=== PATIENT | male | born 1950 | race Caucasian/White ===

== ENCOUNTER 2016-07-01 13:08 | Emergency (ER) | payer OTHER ==
[~2016-07-01] VITALS: Ht 175.3 cm; Wt 86.2 kg
[2016-07-01 13:19] VITALS: BP 146/76
--- NOTE | 2016-07-01 14:06 | ED GI/GU/ABDOMINAL COMPLAINT ---
History of Present Illness General Chief Complaint: Male Genitourinary Problems Stated Complaint: ?UTI Source: patient Exam Limitations: no limitations Vital Signs & Intake/Output Vital Signs & Intake/Output Vital Signs Date Time Temp Pulse Resp B/P Pulse O2 O2 Flow FiO2 Ox Delivery Rate 07/01 1438 103.1 07/01 1319 103.1 97 24 146/76 97 Room Air ED Intake and Output 07/02 0000 07/01 1200 Intake Total Output Total Balance Patient 190 lb Weight Allergies Coded Allergies: No Known Allergies (07/01/16) Reconcile Medications Ciprofloxacin HCl (Cipro) 500 MG TABLET 1 TAB PO BID PYELONEPHRITIS Tamsulosin HCl (Flomax) 0.4 MG CAP.ER.24H 1 CAP PO DAILY PROSTATITIS Triage Note: TRIAGE: PT TO ER C/C PAIN WITH URINATION SINCE YESTERDAY LUNCH TIME. FEVER WELL. TOOK ASPIRIN AND ?HOMEPATHIC ACHING CHILLS FEVER MEDICATION. 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 REPORTS FREQUENT URINATION WITH DECREASED URINARY OUTPUT. HX OF UTI, FEELS SAME. Triage Nurses Notes Reviewed? yes HPI: This patient is a 65-year-old male who presented to the emergency department today for evaluation of, "I think I have a bladder infection." The patient reported that his symptoms began yesterday with difficulty starting a stream. He denied any blood or burning with urination. No urgency or frequency. The patient reported that he has had a bladder infection in the past and this feels similar. He reported fever to 101.5F. He reported associated chills. He denied any back pain, nausea, vomiting, abdominal pain, chest pain, or difficulty breathing. Past History Travel History Traveled to [place] past 21 day No Medical History Any Pertinent Medical History? see below for history Neurological: NONE EENT: NONE Cardiovascular: hypertension Respiratory: NONE Gastrointestinal: NONE Hepatic: NONE Renal: UTI Musculoskeletal: disk herniation, ROTATOR CUFF TORE TENDON WRIST Psychiatric: NONE Endocrine: NONE Blood Disorders: NONE Cancer(s): NONE OPERATING ROOM SCHEDULER/Reproductive: NONE Surgical History Surgical History: non-contributory Psychosocial History What is your primary language Lao Tobacco Use: Quit >30 days ago ETOH Use: heavy use Illicit Drug Use: denies illicit drug use Family History Hx Contributory? No Review of Systems Review of Systems Constitutional: Reports: see HPI. EENTM: Reports: no symptoms. Respiratory: Reports: no symptoms. Cardiovascular: Reports: no symptoms. GI: Reports: no symptoms. Genitourinary: Reports: see HPI. Musculoskeletal: Reports: no symptoms. Skin: Reports: no symptoms. Neurological/Psychological: Reports: no symptoms. All Other Systems: Reviewed and Negative Physical Exam Physical Exam Gastrointestinal: normal bowel sounds, soft, non-tender, no organomegaly Comments: Well-developed well-nourished person in no acute distress HEENT: Normal EENT exam, head normocephalic, moist mucous membranes Neck: Supple Back: Normal gait. No CVA tenderness Cardiovascular: Regular rate and rhythm with no murmurs Respiratory: Lungs clear to auscultation bilaterally with no wheezes, rales, rhonchi Extremity: Normal and equal pulses Neuro: Alert oriented x3, cranial nerves II through XII grossly intact. Skin: No appreciable rash on exposed skin, skin is warm and dry. Psych: Mood and affect is normal Core Measures ACS in differential dx? No Severe Sepsis Present: No Septic Shock Present: No Progress Differential Diagnosis: bowel obstruction, epididymitis, hernia, orchitis, prostatitis, pyelonephritis, ureterolithiasis, urinary retention, urethritis, UTI/pyelo Plan of Care: Orders Procedure Date/time Status Add-on Test (ER Only) 07/01 1353 Active CULTURE,URINE 07/01 1349 Active URINALYSIS 07/01 1342 Complete Laboratory Tests 07/01/16 1346: Urine Color YEL, Urine Clarity CLDY H, Urine pH 7.0, Ur Specific [place] 1.020, Urine Protein 100 H, Urine Ketones NEG, Urine Nitrite POS H, Urine Bilirubin NEG@ICTO, Urine Urobilinogen 1.0, Ur Leukocyte Esterase MOD H, Ur Microscopic SEDIMENT EXAMINED, Urine RBC 5-10 H, Urine WBC > 75 H, Urine Hemoglobin LARGE H, Urine Glucose NEG Microbiology 07/01 1346 URINE ROUT: Urine Culture - RES GRAM NEGATIVE RODS Initial ED EKG: none Comments: 07/01/2016 2:28:04 PM: I discussed this patient with Dr. Lema who is recommending Socrates, antipyretics, and a dry CT scan of the abdomen and pelvis to rule out stone. This patient's urinalysis showing greater than 75 white blood cells with positive nitrates and positive esterase. This patient has a fever to 103F here in the emergency department. I discussed this with the patient and told him he likely has either a pyelonephritis or prostatitis versus a possible stone. The patient is refusing CT scan here in the emergency department. He is refusing fluids and further intervention. This patient will be leaving AGAINST MEDICAL ADVICE. I will be giving this patient a urologist to follow up with as well as outpatient antibiotics and Flomax. Instructed the patient to return to the emergency department should he develop any abdominal pain, vomiting, fevers unresponsive to [id number] medications, her symptoms. Departure Departure Disposition: LEFT AGAINST MEDICAL ADVICE Condition: Stable Clinical Impression Primary Impression: Pyelonephritis Referrals: JOY SOLER MD PATIENT HAS NO PRIMARY CARE DR (PCP/Family) Additional Instructions: Please take antibiotic as prescribed and for the full duration. Take Flomax as prescribed. Please be sure to stay hydrated and take [id number] Tylenol or Motrin for fevers. Call the urologist whose information has been provided to you in this packet for further evaluation and management. Return to the emergency department for any worsening symptoms, high fevers, vomiting, abdominal pain, or for any other associated symptoms. Departure Forms: Customer Survey General Discharge Information Prescriptions: Current Visit Scripts Tamsulosin HCl (Flomax) 1 CAP PO DAILY #14 CAP Ciprofloxacin HCl (Cipro) 1 TAB PO BID #28 TAB
[2016-07-01] MEDS ORDERED: CIPRO500 M1 PO (14:31)
[2016-07-01] MEDS ORDERED: FLOMAX0.4 M1 PO (14:31)
== END 2016-07-01 14:40 | disposition left against medical advice (07) ==
LOC: ERH 13:08
DX: N12 Tubulo-interstitial nephritis, not specified as acute or chronic (principal)
CPT/HCPCS: 81001; 87086